=== PATIENT | male | born 1990 | race American Indian/Alaskan Native ===

== ENCOUNTER 2017-01-26 00:31 | Emergency (ER) | payer SELFPAY ==
[2017-01-26] MEDS ORDERED: TENIVAC IM ONE (04:47)
[2017-01-26] MEDS ORDERED: MOTRIN PO ONE (04:47)
[2017-01-26] MEDS ORDERED: TYLENOL PO ONE (04:47)
--- NOTE | 2017-01-26 04:47 | Emergency Department Report ---
ED Lower Extremity HPI - General Chief Complaint: Extremity Injury, Lower Stated Complaint: FOOT PAIN Time Seen by Provider: 01/26/17 04:38 Source: patient, RN notes reviewed Mode of arrival: Ambulatory Limitations: No Limitations - History of Present Illness Initial Comments: This is a 26-year-old male. He is previously unknown to me. The patient presents to the ER with left dorsal foot pain. The patient was playing football , and indicates a crush injury to the dorsal aspect left foot from another cleat. There is no headache, neck pain, chest pain, abdominal pain and shortness of breath. he can't recall his last tetanus vaccination. The pain is sharp and achy. It increases with palpation and range of motion. It decreases with rest. MD Complaint: foot injury -: Sudden Injury: Foot: Left Type of Injury: blunt Place: street/outdoors Severity: moderate Improves With: rest Worsens With: movement, palpation Context: direct blow Associated Symptoms: swelling - Related Data Previous Rx's Medication Instructions Recorded Last Taken Type Ibuprofen [Motrin] 600 mg PO Q8H PRN #30 tablet 01/26/17 Unknown Rx Mupirocin [Bactroban 2% CREAM] 1 applicatio TP BID #1 cream 01/26/17 Unknown Rx Allergies Allergy/AdvReac Type Severity Reaction Status Date / Time No Known Allergies Allergy Verified 01/26/17 02:21 ED Review of Systems ROS: Stated complaint: FOOT PAIN Other details as noted in HPI Constitutional: denies: fever Eyes: denies: eye discharge ENT: denies: epistaxis Respiratory: denies: cough Cardiovascular: denies: chest pain Gastrointestinal: denies: abdominal pain Genitourinary: as per HPI Musculoskeletal: arthralgia, myalgia Skin: lesions Neurological: as per HPI. denies: numbness, paresthesias Psychiatric: as per HPI ED Past Medical Hx - Past Medical History Previous Medical History?: No - Surgical History Past Surgical History?: No - Medications Home Medications: Home Medications Medication Instructions Recorded Confirmed Last Taken Type Ibuprofen [Motrin] 600 mg PO Q8H PRN #30 tablet 01/26/17 Unknown Rx Mupirocin [Bactroban 2% CREAM] 1 applicatio TP BID #1 cream 01/26/17 Unknown Rx ED Physical Exam - General Limitations: Physical Limitation General appearance: alert, in no apparent distress - Head Head exam: Present: atraumatic, normocephalic - Eye Eye exam: Present: normal appearance, EOMI. Absent: nystagmus - ENT ENT exam: Present: normal exam, normal orophraynx, mucous membranes moist, normal external ear exam - Neck Neck exam: Present: normal inspection, full ROM. Absent: tenderness, meningismus - Respiratory Respiratory exam: Present: normal lung sounds bilaterally. Absent: respiratory distress, wheezes, rales, rhonchi, stridor, chest wall tenderness - Cardiovascular Cardiovascular Exam: Present: regular rate, normal rhythm, normal heart sounds. Absent: systolic murmur, diastolic murmur, rubs, gallop - GI/Abdominal GI/Abdominal exam: Present: soft, normal bowel sounds. Absent: distended, tenderness, guarding, rebound, rigid, pulsatile mass - Rectal Rectal exam: Present: deferred - Extremities Exam Extremities exam: Present: full ROM, tenderness (left lower extremity is unremarkable with the exception of the dorsal aspect of the left foot. There is no abrasion noted. There is dorsal foot tenderness. There is no calcaneal tenderness. There is no talus tenderness. There is no malleolus tenderness. There is no tenderness at the base of the fifth metatarsal. There is tenderness to the dorsal aspect of the foot. Compartments are soft. 2+ pulses are noted.), normal capillary refill, other (the bilateral upper extremities are unremarkable with 2+ pulses. There is no long bony tenderness. The right lower extremity is unremarkable. There are 2+ pulses in the right lower extremity.). Absent: pedal edema, joint swelling, calf tenderness - Back Exam Back exam: Present: normal inspection, full ROM. Absent: tenderness, CVA tenderness (R), CVA tenderness (L), muscle spasm, paraspinal tenderness, vertebral tenderness - Neurological Exam Neurological exam: Present: alert, oriented X3, other (Extraocular movements intact. Tongue midline. No facial droop. Facial sensation intact to light touch in the V1, V2, V3 distribution bilaterally. 5 and 5 strength in 4 extremities.. Sensation is intact to light touch in 4 extremities.). Absent: motor sensory deficit - Psychiatric Psychiatric exam: Present: normal affect, normal mood - Skin Skin exam: Present: rash, erythema, ecchymosis ED Course Vital Signs 01/26/17 02:18 Temperature 98.5 F Pulse Rate 61 Respiratory 18 Rate Blood Pressure 123/83 O2 Sat by Pulse 98 Oximetry ED Lower Extremity MDM - Lab Data Vital Signs 01/26/17 02:18 Temperature 98.5 F Pulse Rate 61 Respiratory 18 Rate Blood Pressure 123/83 O2 Sat by Pulse 98 Oximetry - Radiology Data Radiology results: image reviewed interpreted by me: Left dorsal foot x-ray negative for acute fracture and dislocation - Medical Decision Making Differential diagnosis: Crush injury, contusion, fracture, dislocation Assessment and plan: 26-year-old male with mild crush injury to the left dorsal foot. The compartments are soft. Neurovascularly intact. No fracture or dislocation noted. He is treated symptomatically with pain medication. Patient will be made nonweightbearing, hard sole shoe, crutches, tetanus vaccination, instructed to follow up with orthopedics. Critical care attestation.: If time is entered above; I have spent that time in minutes in the direct care of this critically ill patient, excluding procedure time. ED Disposition Clinical Impression: Left foot pain Disposition: DISCHARGED TO HOME OR SELFCARE Is pt being admited?: No Does the pt Need Aspirin: No Condition: Stable Instructions: Arthralgia (ED) Additional Instructions: Rest and avoid heavy lifting. Avoid strenuous physical activity. Take the pain medication as directed. Wash the foot with gentle soap and water every 12 hours. Apply the Bactroban antibiotic ointment as directed. Keep the hard sole shoe and placed during the day, remain nonweightbearing and use crutches. Follow-up with an orthopedic surgeon or shift stacker within the next 5-7 days. Follow up with either of those physicians for clearance to return to work. Return to the ER right away with new pain, worsening pain, migration of pain, redness, streaking, pus, chills, weakness, numbness. Referrals: PRIMARY CARE, [Primary Care Provider] - 3-5 Days SOCRATES AL MD [Staff Physician] - 3-5 Days TARA JUSTIN DPM [Staff Physician] - 3-5 Days Forms: Work/School Release Form(ED)
[2017-01-26] MEDS ORDERED: BOOSTRIX IM ONE (05:04)
[2017-01-26 05:52] VITALS: BP 124/75
--- NOTE | 2017-01-26 07:20 | XRay Report ---
Left foot 2 views: History: Foot pain. Swelling. Findings: No bony or articular abnormality. No fracture dislocation or soft tissue calcification. Impression: No evidence of acute fracture.
== END 2017-01-26 05:52 | disposition home or self-care (01) ==
LOC: ED 00:31
DX: S97.82XA Crushing injury of left foot, initial encounter (principal); X58.XXXA Exposure to other specified factors, initial encounter; Y93.61 Activity, american tackle football; Y99.9 Unspecified external cause status; Y92.39 Other specified sports and athletic area as the place of occurrence of the external cause
CPT/HCPCS: 82962; 90471; 90714; 90715; 99284